=== PATIENT | female | born 1995 | race Caucasian/White ===

== ENCOUNTER 2016-08-07 11:24 | Emergency (ER) | payer OTHER ==
[~2016-08-07] VITALS: Ht 167.6 cm; Wt 87.1 kg
[~2016-08-07 11:24] MED LIST: APRI1 EACH; ENDOCET 5-3251 EACH PO; FLEXERIL10 MG PO; IBUPROFEN800 MG PO; JUNEL1 EAC1 PO; NAPROSYN500 MG PO; NOHOMEMEDS; PEPCID20 MG PO; PREDNISONE20 MG PO; PRENATAL PLUS1 EAC3 PO; VENTOLIN HFA18 GM IH; ZOFRAN ODT4 MG PO
[2016-08-07 11:51] LABS: MCH 28.6 PG (29.0-34.0); MCHC 33.6 G/DL (30.0-36.0); MCV 85.1 FL (83-99); MEAN PLAT.VOLUME 10.3 uM^3 (9.5-12.4); PLATELET COUNT 266 K/uL (156-360); RBC DIS.WIDTH-CV 12.7 % (11.8-14.6); RBC DIS.WIDTH-SD 38.6 % (39-53); RED BLOOD COUNT 5.17 M/uL (3.80-5.20); WHITE BLOOD COUNT 7.3 K/uL (4.1-10.2)
[2016-08-07 12:00] LABS: CHLORIDE 108 mEq/L (99-109); POTASSIUM 4.1 mEq/L (3.7-5.4); SODIUM 140 mEq/L (136-147)
[2016-08-07 12:01] LABS: ADD MIUA? YES; BILIRUBIN NEGATIVE; BLOOD MODERATE; COLOR YELLOW ((YELLOW)); GLUCOSE (STRIP) NEGATIVE; KETONES NEGATIVE; LEUKOCYTES NEGATIVE; NITRITE NEGATIVE; PH, URINE 7.5 (5-8); PROTEIN (STRIP) NEGATIVE; SPECIFIC GRAVITY 1.026 (1.000-1.030)
[2016-08-07 12:02] LABS: GLUCOSE 74 mg/dL (70-99)
[2016-08-07 12:04] LABS: ANION GAP 10 MEQ/L (2-14); TOTAL BILIRUBIN 0.3 mg/dL (0.0-1.0)
[2016-08-07 12:06] LABS: GFR ESTIMATE (CALCULATED) > 59 mL/min/
[2016-08-07 12:07] LABS: UREA NITROGEN (BUN) 14 mg/dL (9-23)
[2016-08-07 12:08] LABS: ALKALINE PHOSPHATASE 81 IU/L (3-129)
[2016-08-07 12:10] LABS: DIRECT BILIRUBIN 0.1 mg/dL (0.0-0.3); LIPASE 37 U/L (1.0-51.0)
[2016-08-07 12:15] LABS: BACTERIA 1+; CASTS NONE SEEN /LPF; CRYSTALS NONE SEEN; EPITHELIAL CELLS 1+; MUCUS NONE SEEN; RED BLOOD CELLS 0-5 /HPF (0-5); WHITE BLOOD CELLS 0-5 /HPF (0-5)
[2016-08-07 12:18] LABS: QUANTITATIVE HCG < 4.0 MIU/ML
[2016-08-07] MEDS ORDERED: ZOFRAN ODT4 MG PO (13:08)
[2016-08-07] MEDS ORDERED: BENTYL20 MG PO (13:08)
[2016-08-07 13:23] VITALS: BP 151/74
== END 2016-08-07 13:26 | disposition home or self-care (01) ==
LOC: EME 11:24 → RME 11:24
PROVIDERS: Physician Assistant
DX: R10.9 Unspecified abdominal pain (principal); R11.0 Nausea; R19.7 Diarrhea, unspecified
CPT/HCPCS: 80048; 80076; 81003; 83690; 84702; 85027; 99281; 99284; J0500

== ENCOUNTER 2016-10-27 21:35 | Emergency (ER) | payer BC ==
[~2016-10-27] VITALS: Ht 165.1 cm; Wt 84.0 kg
[~2016-10-27 21:35] MED LIST changes: +BENTYL20 MG PO
[2016-10-27 21:58] LABS: HEMATOCRIT 43.2 % (36.0-46.0); MCH 28.3 PG (29.0-34.0); MCHC 32.9 G/DL (30.0-36.0); MCV 86.1 FL (83-99); PLATELET COUNT 273 K/uL (156-360); RBC DIS.WIDTH-CV 13.2 % (11.8-14.6); RBC DIS.WIDTH-SD 41.5 % (39-53); RED BLOOD COUNT 5.02 M/uL (3.80-5.20); WHITE BLOOD COUNT 9.8 K/uL (4.1-10.2)
[2016-10-27 22:08] LABS: CHLORIDE 107 mEq/L (99-109); POTASSIUM 4.1 mEq/L (3.7-5.4); SODIUM 141 mEq/L (136-147)
[2016-10-27 22:10] LABS: GLUCOSE 88 mg/dL (70-99)
[2016-10-27 22:11] LABS: ANION GAP 9 MEQ/L (2-14)
[2016-10-27 22:14] LABS: GFR ESTIMATE (CALCULATED) > 59 mL/min/
[2016-10-27 22:15] LABS: UREA NITROGEN (BUN) 10 mg/dL (9-23)
[2016-10-27 22:32] LABS: TROP-I INTERPRETATION NEGATIVE; TROPONIN-I < 0.01 ng/mL (0.0-0.30)
[2016-10-27] MEDS ORDERED: APRI1 EACH PO (22:46)
[2016-10-27 23:07] LABS: D-DIMER ELISA 0.52 mg/L FEU (< 0.57)
[2016-10-27] MEDS ORDERED: PEPCID20 MG PO (23:50)
[2016-10-27 23:56] VITALS: BP 112/71
[2016-10-28 00:40] LABS: QUANTITATIVE HCG < 4.0 MIU/ML
== END 2016-10-28 00:08 | disposition home or self-care (01) ==
LOC: EME 21:35
DX: R07.9 Chest pain, unspecified (principal); R06.00 Dyspnea, unspecified; Z82.49 Family history of ischemic heart disease and other diseases of the circulatory system
CPT/HCPCS: 71020; 80048; 84484; 84702; 85027; 85379; 93005; 99281; 99285

== ENCOUNTER 2016-11-20 18:12 | Emergency (ER) | payer BC ==
[~2016-11-20] VITALS: Ht 167.6 cm; Wt 75.7 kg
[~2016-11-20 18:12] MED LIST changes: +APRI1 EACH PO
[2016-11-20] MEDS ORDERED: MOTRIN800 MG PO (19:44)
[2016-11-20 19:54] VITALS: BP 139/89
== END 2016-11-20 19:54 | disposition home or self-care (01) ==
LOC: EME 18:12
DX: S80.11XA Contusion of right lower leg, initial encounter (principal)
CPT/HCPCS: 73590; 99281; 99282

== ENCOUNTER 2017-02-02 23:28 | Emergency (ER) | payer BC ==
[~2017-02-02] VITALS: Ht 165.1 cm; Wt 86.9 kg
[~2017-02-02 23:28] MED LIST changes: +MOTRIN800 MG PO
[2017-02-03 02:31] VITALS: BP 113/81
== END 2017-02-03 02:32 | disposition home or self-care (01) ==
LOC: EME → EDBD 23:28 → EME 23:28
DX: T40.1X1A Poisoning by heroin, accidental (unintentional), initial encounter (principal); G43.909 Migraine, unspecified, not intractable, without status migrainosus
CPT/HCPCS: 99281; 99284; J2310

== ENCOUNTER 2017-02-09 20:37 | Emergency (ER) | payer BC ==
[~2017-02-09] VITALS: Ht 167.6 cm; Wt 86.6 kg
[2017-02-09 21:07] VITALS: BP 00/0
== END 2017-02-09 21:09 | disposition home or self-care (01) ==
LOC: EXP 20:37 → EME 20:37 → EXP 21:09
DX: S09.8XXA Other specified injuries of head, initial encounter (principal); Y04.2XXA Assault by strike against or bumped into by another person, initial encounter; Y92.810 Car as the place of occurrence of the external cause
CPT/HCPCS: 99281; 99285

== ENCOUNTER 2017-02-10 09:57 | Emergency (ER) | payer BC ==
[~2017-02-10] VITALS: Ht 167.6 cm; Wt 85.9 kg
[2017-02-10 12:52] VITALS: BP 102/62
== END 2017-02-10 12:53 | disposition home or self-care (01) ==
LOC: EME 09:57
DX: R51 Headache (principal); R42 Dizziness and giddiness; H53.8 Other visual disturbances
CPT/HCPCS: 99281; 99284; J1885

== ENCOUNTER 2017-07-23 21:53 | Emergency (ER) | payer BC, OTHER ==
[~2017-07-23] VITALS: Ht 162.6 cm; Wt 81.1 kg
[~2017-07-23 21:53] MED LIST changes: +KLONOPIN0.5 M1 PO; +ZOLOFT100 MG PO
[2017-07-24] MEDS ORDERED: REGLAN10 MG PO (06:00)
[2017-07-24 06:19] VITALS: BP 141/88
== END 2017-07-24 06:19 | disposition home or self-care (01) ==
LOC: EME 21:53
DX: O26.891 Other specified pregnancy related conditions, first trimester (principal); R51 Headache; Z3A.12 12 weeks gestation of pregnancy
CPT/HCPCS: 99281; 99284; J2765; J7030

== ENCOUNTER 2017-10-09 21:09 | Outpatient (CLI) | payer BC, OTHER ==
[~2017-10-09 21:09] MED LIST changes: +REGLAN10 MG PO
[2017-10-09 21:21] VITALS: BP 113/69
[2017-10-09 23:03] LABS: CANDIDA DNA PROBE NEGATIVE; GARDNERELLA DNA PROBE NEGATIVE; TRICHOMONAS DNA PROBE NEGATIVE
== END 2017-10-10 00:20 | disposition home or self-care (01) ==
LOC: LDRP-OP 21:09 → 2WEST 21:10
PROVIDERS: Advanced Practice Midwife
DX: O46.92 Antepartum hemorrhage, unspecified, second trimester (principal); R10.9 Unspecified abdominal pain; Z3A.23 23 weeks gestation of pregnancy
CPT/HCPCS: 59025; 76805; 87480; 87510; 87660; G0378

== ENCOUNTER 2017-12-17 21:00 | Outpatient (CLI) | payer BC, OTHER ==
[2017-12-17 21:12] VITALS: BP 122/62
[2017-12-17 22:43] LABS: APPEARANCE SL.HAZY ((CLEAR)); BILIRUBIN NEGATIVE; BLOOD NEGATIVE; COLOR YELLOW ((YELLOW)); GLUCOSE (STRIP) NEGATIVE; KETONES NEGATIVE; LEUKOCYTES SMALL; NITRITE NEGATIVE; PROTEIN (STRIP) 30; SPECIFIC GRAVITY 1.028 (1.000-1.030); UROBILINOGEN 0.2 MG/DL (0.2-1.0)
[2017-12-18 00:17] LABS: BACTERIA RARE /HPF; EPITHELIAL CELLS RARE /HPF; MUCUS TRACE /LPF; RED BLOOD CELLS 0-5 /HPF (0-5); WHITE BLOOD CELLS 0-5 /HPF (0-5)
== END 2017-12-17 22:10 | disposition home or self-care (01) ==
LOC: LDRP-OP 21:00 → 2WEST 21:01 → LDRP-OP 03-02 00:28
PROVIDERS: Obstetrics & Gynecology Obstetrics
DX: O60.03 Preterm labor without delivery, third trimester (principal); Z3A.33 33 weeks gestation of pregnancy; O99.343 Other mental disorders complicating pregnancy, third trimester; F41.9 Anxiety disorder, unspecified; F32.9 Major depressive disorder, single episode, unspecified
CPT/HCPCS: 59025; 81003; G0378

== ENCOUNTER 2018-01-07 19:02 | Outpatient (CLI) | payer BC, OTHER ==
[2018-01-07 19:13] VITALS: BP 136/90
[2018-01-07 19:22] VITALS: BP 124/81
[2018-01-07 19:51] LABS: BASOPHIL (%) 0.2 % (0-1); EOSINOPHIL (%) 0.7 % (0-5); EOSINOPHIL COUNT 0.1 K/uL (0-0.3); HEMATOCRIT 35.9 % (36.0-46.0); HEMOGLOBIN 11.9 G/DL (11.9-15.5); IMMATURE GRANULOCYTE (%) 0.2 % (0.0-0.7); LYMPHOCYTE (%) 17.1 % (15-42); LYMPHOCYTE COUNT 1.4 K/uL (1.0-2.8); MCH 27.9 PG (29.0-34.0); MCHC 33.1 G/DL (30.0-36.0); MCV 84.3 FL (83-99); MONOCYTE (%) 5.1 % (3-12); MONOCYTE COUNT 0.4 K/uL (0-0.8); NEUTROPHIL (%) 76.7 % (45-76); NEUTROPHIL COUNT 6.4 K/uL (1.8-6.4); PLATELET COUNT 176 K/uL (156-360); RBC DIS.WIDTH-CV 13.8 % (11.8-14.6); RBC DIS.WIDTH-SD 42.4 % (39-53); RED BLOOD COUNT 4.26 M/uL (3.80-5.20); WHITE BLOOD COUNT 8.4 K/uL (4.1-10.2)
[2018-01-07 20:04] LABS: APPEARANCE SL.HAZY ((CLEAR)); BILIRUBIN NEGATIVE; BLOOD NEGATIVE; COLOR YELLOW ((YELLOW)); GLUCOSE (STRIP) NEGATIVE; KETONES 5; LEUKOCYTES SMALL; NITRITE NEGATIVE; PROTEIN (STRIP) 30; SPECIFIC GRAVITY 1.035 (1.000-1.030)
[2018-01-07 20:06] LABS: ALBUMIN 3.1 G/DL (3.2-4.8); CHLORIDE 106 MEQ/L (99-109); POTASSIUM 3.8 MEQ/L (3.7-5.4); SODIUM 137 MEQ/L (136-147); TOTAL BILIRUBIN 0.1 MG/DL (0.0-1.0)
[2018-01-07 20:11] LABS: BACTERIA RARE /HPF; EPITHELIAL CELLS 1+ /HPF; MUCUS 3+ /LPF; RED BLOOD CELLS 0-5 /HPF (0-5); UCUL ADDED? NO; WHITE BLOOD CELLS 0-5 /HPF (0-5)
[2018-01-07 20:12] LABS: ALKALINE PHOSPHATASE 131 IU/L (3-129); ALT (GPT) 9 IU/L (3-49); AST (GOT) 13 IU/L (2-34); CREATININE 0.7 MG/DL (0.6-1.3); GFR ESTIMATE (CALCULATED) > 59 mL/min/; GLUCOSE 100 mg/dL (70-99); LACTATE DEHYDROGENASE 178 IU/L (20-246); TOTAL PROTEIN 5.7 G/DL (6.4-8.3); UREA NITROGEN (BUN) 8 mg/dL (9-23); URIC ACID 4.8 mg/dL (3.1-9.2)
[2018-01-07 20:18] LABS: AMPHETAMINE NEGATIVE (500 ng/mL); BENZODIAZEPINES NEGATIVE (150 ng/mL); COCAINE NEGATIVE (150 ng/mL); METHADONE NEGATIVE (200 ng/mL); METHAMPHETAMINE NEGATIVE (500 ng/mL); OPIATES (MORPHINE) NEGATIVE (100 ng/mL); PHENCYCLIDINE NEGATIVE (25 ng/mL); THC CANNABINOIDS NEGATIVE (50 ng/mL); TRICYCLIC ANTIDEPRESSANTS NEGATIVE (300 ng/mL)
[2018-01-07 20:19] LABS: BARBITURATES NEGATIVE (200 ng/mL); BUPRENORPHINE NEGATIVE (10 ng/mL); OXYCODONE NEGATIVE (100 ng/mL); PROPOXYPHENE NEGATIVE (300 ng/mL)
[2018-01-07 20:47] VITALS: BP 124/77
[2018-01-07 20:50] LABS: UR CREATININE CONCENTRATION 297.2 MG/DL
== END 2018-01-07 21:25 | disposition home or self-care (01) ==
LOC: LDRP-OP 19:02 → 2WEST 19:04 → LDRP-OP 03-02 22:16
PROVIDERS: Advanced Practice Midwife
DX: O26.893 Other specified pregnancy related conditions, third trimester (principal); R10.32 Left lower quadrant pain; O34.219 Maternal care for unspecified type scar from previous cesarean delivery; Z82.49 Family history of ischemic heart disease and other diseases of the circulatory system; Z83.3 Family history of diabetes mellitus; Z82.5 Family history of asthma and other chronic lower respiratory diseases; Z3A.36 36 weeks gestation of pregnancy
CPT/HCPCS: 59025; 80053; 81003; 82570; 83615; 84156; 84550; 85025; 87086; G0378

== ENCOUNTER 2018-01-14 11:22 | Outpatient (CLI) | payer BC, OTHER ==
[2018-01-14 11:37] VITALS: BP 118/70
== END 2018-01-14 14:53 | disposition home or self-care (01) ==
LOC: LDRP-OP 11:22 → 2WEST 11:23 → LDRP-OP 03-02 21:49
DX: O36.8130 Decreased fetal movements, third trimester, not applicable or unspecified (principal); Z3A.37 37 weeks gestation of pregnancy
CPT/HCPCS: 59025; G0378

== ENCOUNTER 2018-01-20 12:44 | Outpatient (CLI) | payer BC, OTHER ==
[2018-01-20 13:06] VITALS: BP 122/77
[2018-01-20 14:12] LABS: BASOPHIL (%) 0.4 % (0-1); EOSINOPHIL (%) 1.2 % (0-5); EOSINOPHIL COUNT 0.1 K/uL (0-0.3); HEMATOCRIT 37.9 % (36.0-46.0); HEMOGLOBIN 12.2 G/DL (11.9-15.5); IMMATURE GRANULOCYTE (%) 0.3 % (0.0-0.7); LYMPHOCYTE (%) 19.5 % (15-42); LYMPHOCYTE COUNT 1.3 K/uL (1.0-2.8); MCH 27.2 PG (29.0-34.0); MCHC 32.2 G/DL (30.0-36.0); MCV 84.6 FL (83-99); MONOCYTE (%) 6.9 % (3-12); MONOCYTE COUNT 0.5 K/uL (0-0.8); NEUTROPHIL (%) 71.7 % (45-76); NEUTROPHIL COUNT 4.9 K/uL (1.8-6.4); PLATELET COUNT 172 K/uL (156-360); RBC DIS.WIDTH-CV 14.2 % (11.8-14.6); RBC DIS.WIDTH-SD 43.6 % (39-53); RED BLOOD COUNT 4.48 M/uL (3.80-5.20); WHITE BLOOD COUNT 6.9 K/uL (4.1-10.2)
[2018-01-20 14:30] LABS: ALBUMIN 3.1 G/DL (3.2-4.8); AMYLASE 37 IU/L (1-118); CHLORIDE 105 MEQ/L (99-109); SODIUM 137 MEQ/L (136-147); TOTAL BILIRUBIN 0.3 MG/DL (0.0-1.0)
[2018-01-20 14:36] LABS: ALKALINE PHOSPHATASE 157 IU/L (3-129); ALT (GPT) 9 IU/L (3-49); AST (GOT) 14 IU/L (2-34); CREATININE 0.7 MG/DL (0.6-1.3); GFR ESTIMATE (CALCULATED) > 59 mL/min/; GLUCOSE 82 mg/dL (70-99); LIPASE 30 U/L (1.0-51.0); TOTAL PROTEIN 5.7 G/DL (6.4-8.3); UREA NITROGEN (BUN) 7 mg/dL (9-23)
[2018-01-20 14:47] LABS: APPEARANCE SL.HAZY ((CLEAR)); BILIRUBIN NEGATIVE; BLOOD NEGATIVE; COLOR YELLOW ((YELLOW)); GLUCOSE (STRIP) NEGATIVE; KETONES NEGATIVE; LEUKOCYTES LARGE; NITRITE NEGATIVE; PROTEIN (STRIP) NEGATIVE; SPECIFIC GRAVITY 1.021 (1.000-1.030); UROBILINOGEN 0.2 MG/DL (0.2-1.0)
[2018-01-20 14:56] LABS: BACTERIA 1+ /HPF; EPITHELIAL CELLS 2+ /HPF; MUCUS 1+ /LPF; RED BLOOD CELLS 0-5 /HPF (0-5)
[2018-01-20 15:31] VITALS: BP 134/81
== END 2018-01-20 16:30 | disposition home or self-care (01) ==
LOC: LDRP-OP 12:44 → 2WEST 12:56 → LDRP-OP 03-02 16:14
PROVIDERS: Advanced Practice Midwife
DX: O26.893 Other specified pregnancy related conditions, third trimester (principal); R10.11 Right upper quadrant pain; O34.219 Maternal care for unspecified type scar from previous cesarean delivery; Z3A.38 38 weeks gestation of pregnancy; O99.343 Other mental disorders complicating pregnancy, third trimester; F32.9 Major depressive disorder, single episode, unspecified
CPT/HCPCS: 59025; 76705; 80053; 81003; 82150; 83690; 85025; G0378

== ENCOUNTER 2018-01-23 04:57 | Inpatient (IN) | payer BC, OTHER ==
[~2018-01-23] VITALS: Ht 165.1 cm; Wt 106.4 kg
[2018-01-23 05:12] VITALS: BP 140/90
[2018-01-23 05:58] LABS: BASOPHIL (%) 0.4 % (0-1); EOSINOPHIL (%) 1.2 % (0-5); EOSINOPHIL COUNT 0.1 K/uL (0-0.3); HEMATOCRIT 40.1 % (36.0-46.0); HEMOGLOBIN 13.3 G/DL (11.9-15.5); IMMATURE GRANULOCYTE (%) 0.2 % (0.0-0.7); LYMPHOCYTE (%) 25.5 % (15-42); LYMPHOCYTE COUNT 2.3 K/uL (1.0-2.8); MCH 27.5 PG (29.0-34.0); MCHC 33.2 G/DL (30.0-36.0); MONOCYTE (%) 6.5 % (3-12); MONOCYTE COUNT 0.6 K/uL (0-0.8); NEUTROPHIL (%) 66.2 % (45-76); NEUTROPHIL COUNT 5.9 K/uL (1.8-6.4); PLATELET COUNT 188 K/uL (156-360); RBC DIS.WIDTH-CV 14.2 % (11.8-14.6); RBC DIS.WIDTH-SD 42.3 % (39-53); RED BLOOD COUNT 4.83 M/uL (3.80-5.20); WHITE BLOOD COUNT 8.9 K/uL (4.1-10.2)
[2018-01-23 06:13] LABS: AMPHETAMINE NEGATIVE (500 ng/mL); BARBITURATES NEGATIVE (200 ng/mL); BENZODIAZEPINES NEGATIVE (150 ng/mL); BUPRENORPHINE NEGATIVE (10 ng/mL); COCAINE NEGATIVE (150 ng/mL); METHADONE NEGATIVE (200 ng/mL); METHAMPHETAMINE NEGATIVE (500 ng/mL); OPIATES (MORPHINE) NEGATIVE (100 ng/mL); OXYCODONE NEGATIVE (100 ng/mL); PHENCYCLIDINE NEGATIVE (25 ng/mL); PROPOXYPHENE NEGATIVE (300 ng/mL); THC CANNABINOIDS NEGATIVE (50 ng/mL); TRICYCLIC ANTIDEPRESSANTS NEGATIVE (300 ng/mL)
[2018-01-23 10:38] VITALS: BP 124/85
[2018-01-23 11:17] VITALS: BP 128/72
[2018-01-23 12:07] VITALS: BP 129/70
[2018-01-23 23:05] VITALS: BP 123/61
[2018-01-24 03:30] VITALS: BP 128/58
[2018-01-24 06:38] LABS: BASOPHIL (%) 0.3 % (0-1); EOSINOPHIL (%) 0.8 % (0-5); EOSINOPHIL COUNT 0.1 K/uL (0-0.3); HEMOGLOBIN 10.7 G/DL (11.9-15.5); IMMATURE GRANULOCYTE (%) 0.1 % (0.0-0.7); LYMPHOCYTE (%) 21.3 % (15-42); LYMPHOCYTE COUNT 1.5 K/uL (1.0-2.8); MCHC 31.5 G/DL (30.0-36.0); MCV 85.9 FL (83-99); MONOCYTE (%) 7.6 % (3-12); MONOCYTE COUNT 0.5 K/uL (0-0.8); NEUTROPHIL (%) 69.9 % (45-76); PLATELET COUNT 143 K/uL (156-360); RBC DIS.WIDTH-CV 14.6 % (11.8-14.6); RBC DIS.WIDTH-SD 45.3 % (39-53); RED BLOOD COUNT 3.96 M/uL (3.80-5.20); WHITE BLOOD COUNT 7.1 K/uL (4.1-10.2)
[2018-01-25 07:29] VITALS: BP 118/72
[2018-01-25] MEDS ORDERED: ENDOCET 5-3251 EACH PO (09:14)
[2018-01-25] MEDS ORDERED: IBUPROFEN800 MG PO (09:14)
[2018-01-25] MEDS ORDERED: IRON325 M1 PO (09:15)
== END 2018-01-25 11:45 | disposition home or self-care (01) | DRG 765 ==
LOC: 2WEST 04:57 → 2SOUTH 10:32 → 2WEST 01-25 11:45
PROVIDERS: Obstetrics & Gynecology Obstetrics
PROC: 10D00Z1 Extraction of Products of Conception, Low, Open Approach (ICD-10-PCS; principal; 2018-01-23)
DX: O34.211 Maternal care for low transverse scar from previous cesarean delivery (principal); O69.81X0 Labor and delivery complicated by cord around neck, without compression, not applicable or unspecified; O99.02 Anemia complicating childbirth; D62 Acute posthemorrhagic anemia; O26.03 Excessive weight gain in pregnancy, third trimester; O99.344 Other mental disorders complicating childbirth; F32.9 Major depressive disorder, single episode, unspecified; O99.354 Diseases of the nervous system complicating childbirth; G43.909 Migraine, unspecified, not intractable, without status migrainosus; O99.214 Obesity complicating childbirth; E66.3 Overweight; Z68.27 Body mass index [BMI] 27.0-27.9, adult; Z3A.39 39 weeks gestation of pregnancy; Z37.0 Single live birth
CPT/HCPCS: 85025; 86850; 86900; 86901; J0690; J1200; J1885; J2250; J2274; J2590; J3010; J7120; S0020

== ENCOUNTER 2018-02-17 20:14 | Emergency (ER) | payer BC, OTHER ==
[~2018-02-17] VITALS: Ht 162.6 cm; Wt 90.2 kg
[~2018-02-17 20:14] MED LIST changes: +IRON325 M1 PO
[2018-02-17 22:28] VITALS: BP 126/85
== END 2018-02-17 22:34 | disposition home or self-care (01) ==
LOC: EME 20:14
DX: Z48.89 Encounter for other specified surgical aftercare (principal)
CPT/HCPCS: 76881; 99281; 99284